=== PATIENT | female | born 1955 | race Caucasian/White ===

== ENCOUNTER 2017-01-03 17:42 | Emergency (ER) | payer BC ==
[2017-01-03] MEDS ORDERED: Tetan/Diph/Pertus SYR(Tdap)* 0.5 ML SYR(BOOSTRIX) use SYR IM ONE (18:14)
--- NOTE | 2017-01-03 18:39 | RAD ---
Indication: Left index finger avulsion. 2 views of the left index finger demonstrates fracture of the mid shaft with separation and distraction of the distal fracture fragments. IMPRESSION: Fracture mid shaft of the distal phalanx of the second digit with distraction of the fracture fragments with mild comminution.
--- NOTE | 2017-01-03 19:24 | ED ---
Upper Extremity Pain - HPI Summary HPI Summary: 61 female presents to ED with complaints of a left index finger injury after it being wrapped up in a rope while docking her boat, when it pulled and her tip of her finger got stuck. States she thinks the top of her finger is off. Patient denies any other injuries. Denies numbness/tingling. Is actively bleeding, minimally/oozing. No anticoagulants. No medications prior to arrival. PMHx significant for HTN and high cholesterol. Admits to obvious deformity and swelling of left index finger-tip. No other complaints at this time. - History of Current Complaint Chief Complaint: EDLacSutureRecheck Stated Complaint: HAND LAND LAC Time Seen by Provider: 01/03/17 17:50 Hx Obtained From: Patient Mechanism Of Injury: Twisted - in rope/ pulled Onset/Duration: Started Hours Ago, Traumatic Timing: Constant Severity Initially: Moderate Severity Currently: Moderate Pain Location: Finger - left index Character: Throbbing Aggravating Factor(s): Movement Alleviating Factor(s): Rest, Compression Associated Signs & Symptoms: Positive: Negative Related History: Dominant Hand Right - Allergies/Home Medications Allergies/Adverse Reactions: Allergies Allergy/AdvReac Type Severity Reaction Status Date / Time No Known Allergies Allergy Verified 01/03/17 18:21 PMH/Surg Hx/FS Hx/Imm Hx Endocrine/Hematology History: Denies: Hx Anticoagulant Therapy Cardiovascular History: Reports: Hx Hypercholesterolemia, Hx Hypertension Respiratory History: Denies: Hx Asthma - Surgical History Surgery Procedure, Year, and Place: n/a - Immunization History Date of Tetanus Vaccine: over 10 years ago. Immunizations Up to Date: Yes Infectious Disease History: No Infectious Disease History: Denies: Traveled Outside the [place] in Last 30 Days - Family History Known Family History: Positive: None - Social History Alcohol Use: Occasionally Substance Use Type: Reports: None Smoking Status (MU): Never Smoked Tobacco Review of Systems Constitutional: Negative Cardiovascular: Negative Respiratory: Negative Positive: Arthralgia, Myalgia - left index Positive: Other - avulsion of finger tip Neurological: Negative All Other Systems Reviewed And Are Negative: Yes Physical Exam Triage Information Reviewed: Yes Vital Signs On Initial Exam: Initial Vitals Temp Pulse Resp BP Pulse Ox 99.2 F 91 16 131/84 99 01/03/17 17:46 01/03/17 17:46 01/03/17 17:46 01/03/17 17:46 01/03/17 17:46 Vital Signs Reviewed: Yes Appearance: Positive: Well-Appearing, No Pain Distress, Well-Nourished Skin: Positive: Warm, Skin Color Reflects Adequate Perfusion, Dry. Negative: Cold, Soft, Pale Head/Face: Positive: Normal Head/Face Inspection Eyes: Positive: Conjunctiva Clear ENT: Positive: Hearing grossly normal Neck: Positive: Supple, Nontender Respiratory/Lung Sounds: Positive: Clear to Auscultation, Breath Sounds Present. Negative: Rales, Rhonchi, Wheezes Cardiovascular: Positive: Normal, RRR, Pulses are Symmetrical in both Upper and Lower Extremities - 2+ radial b/l Bowel Sounds: Positive: Present Musculoskeletal: Positive: Normal, Strength/ROM Intact, Interruption @ - DIP left index, Pain @ - left second distal phalanx, obvious deformity with 3/4 partial avulsion/aputation starting at DIP Neurological: Positive: Normal, Sensory/Motor Intact - sensation appears to be intact, Alert, Oriented to Person Place, Time, Reflexes Intact, NV Bundle Intact Distally Psychiatric: Positive: Affect/Mood Appropriate Procedures - Laceration/Wound Repair 1 Location: Other - left index DIP Description: Linear - 3/4 avulsion of DIP left index Anesthesia: Digital, 1.0%, Lido Length, Depth and Shape: partial amputation of DIP left index ~ 1.5cm circumference Betadine Prep?: Yes Irrigated w/ Saline (ccs): 1,000 Laceration/Wound Explored: clean, no foreign body removed Closure: Single Layer Debridement: minimal Suture Type: Prolene - 4-0 Number of Sutures: 5 Sterile Dressing Applied?: Yes Diagnostics - Vital Signs Vital Signs Temp Pulse Resp BP Pulse Ox 01/03/17 17:46 99.2 F 91 16 131/84 99 - Laboratory Lab Statement: Any lab studies that have been ordered have been reviewed, and results considered in the medical decision making process. - Radiology finger, left Xray Interpretation: Positive (See Comments) - Fracture mid shaft of the distal phalanx of the second digit with distraction of the fracture fragments with mild comminution. Radiology Interpretation Completed By: Radiologist Course/Dx - Course Course Of Treatment: x-ray obtained and postive for fracture. open fracture. spoke with Dr Jacques at 7:30 who stated to suture laceration closed, line up and apply splint. Avulsion was sutured without complication, using steril procedure. Patient tolerated procedure well. Given tylenol for pain and augmentin to prevent infection. Irrigate and soaked thouroughly before procedure. Follow up Dr Jacques. Aware of worsening signs and symptoms to watch out for. continue augmentin at home. Follow up PCP as well. - Diagnoses Differential Diagnosis/HQI/PQRI: Positive: Fracture (Open), Fracture (Closed), Strain, Sprain Provider Diagnoses: Open fracture of phalanx of left index finger - Physician Notifications Discussed Care of Patient With: Dr Jacques Time Discussed With Above Provider: 19:30 Instructed by Provider To: Have Pt Call For Appt. - or thu Discharge - Discharge Plan Condition: Stable Disposition: HOME Prescriptions: Amoxicillin/Clavulanate TAB* [Augmentin TAB 875*] 875 mg PO BID #19 tab HYDROcodone/ACETAMIN 5-325 MG* [[place] 5-325 TAB*] 1 tab PO Q4H PRN #12 tab MDD 3 PRN Reason: Pain Patient Education Materials: Hand Fracture (ED) Referrals: Non Staff,Doctor [Primary Care Provider] - Jose Guadalupe Jacques MD [Medical Doctor] - Additional Instructions: Rest finger, ice and elevate. If begins to bleed through dressing, please re-dress and apply splint. Do not get wet. Keep splint applied, unless feels too tight, you may loosen. Keep clean and dry. Ibuprofen plus prescribed pain medication as needed for pain and inflammation. Antibiotics twice daily for 10 days. Do not miss a dose. Recommend taking probiotic or eating telugu yogurt in between doses. Follow up and make an appointment with Dr Jacques on Thursday or Thursday afternoon. If you develop worsening signs or symptoms to watch out for please seek medical attention promptly, as we discussed.
[2017-01-03] MEDS ORDERED: Amoxicillin/Clavulanate TAB* 875 MG PO ONE (19:37)
[2017-01-03] MEDS ORDERED: Acetaminophen TAB* 325 MG PO ONE (19:37)
[2017-01-03] MEDS ORDERED: Lidocaine 2% PF * 5 ML VIAL ONE (20:33)
[2017-01-03] MEDS ORDERED: HYDROcodone/ACETAMIN 5-325 MG* 1 TAB PO ONE (21:17)
== END 2017-01-03 21:14 | disposition home or self-care (01) ==
LOC: ED 17:42
DX: S62.601B Fracture of unspecified phalanx of left index finger, initial encounter for open fracture (principal); X58.XXXA Exposure to other specified factors, initial encounter; Y93.9 Activity, unspecified; Y92.9 Unspecified place or not applicable
CPT/HCPCS: 12002; 73140; 90471; 90715; 99282; A9270-GY